=== PATIENT | male | born 1960 | race Caucasian/White ===

== ENCOUNTER 2022-03-15 13:17 | Outpatient (CLI) | payer BC ==
[2022-03-15 16:14] LABS: #Eosinphils 0.1 10x3/uL (0.0-0.5); #Monocytes 0.5 10x3/uL (0.0-1.1); #Neutrophils 6.1 10x3/uL (1.5-8.4); %Basophils 0.5 % (0.0-2.0); %Eosinophils 1.5 % (0.0-6.0); %Lymphocytes 15.1 % (18.0-47.0); %Monocytes 6.7 % (0.0-10.0); %Neutrophils 75.5 % (40.0-75.0); Hemoglobin 14.8 g/dL (13.5-17.5); Mean Corpuscular Volume 90.9 fl (81.2-95.1); Mean Platelet Volume 10.8 fl (7.4-10.4); Platelet Count 252 10x3/uL (150-450); RBC Distribution Width 13.3 % (11.5-14.5); Red Blood Cell (RBC) Count 4.93 10x6/uL (4.32-5.72); White Blood Cell (WBC) Count 8.1 10x3/uL (3.5-10.5)
== END 2022-03-15 13:18 | disposition home or self-care (01) ==
LOC: LABBT 13:17
PROVIDERS: ATTEND Orthopaedic Surgery Hand Surgery
DX: Z01.818 Encounter for other preprocedural examination (principal); M72.0 Palmar fascial fibromatosis [Dupuytren]
CPT/HCPCS: 85025; 93005; 93010

== ENCOUNTER 2022-03-19 05:38 | Day surgery (SDC) | payer BC ==
[2022-03-15 13:27] VITALS: BMI 27.3
[2022-03-19] MEDS ORDERED: Bupivacaine PF 0.5% 30 ML VIAL ONE ×2 (06:15→06:17)
[2022-03-19] MEDS ORDERED: Bacitracin Zinc Ointment 30 gm TUBE ONE (06:17)
[2022-03-19] MEDS ORDERED: Neomycin-Polymyxin 1 ML AMP ONE (06:17)
[2022-03-19] MEDS ORDERED: fentaNYL PF 100 MCG/2 ML SYRINGE ONE (07:01)
[2022-03-19] MEDS ORDERED: PROPOFOL 20 ML ONE (07:01)
[2022-03-19] MEDS ORDERED: CEFAZOLIN 2 GM VIAL ONE (07:08)
[2022-03-19] MEDS ORDERED: Sodium Chloride 0.9% 100 ML ONE (07:08)
[2022-03-19] MEDS ORDERED: Collagenase Clostridium Hist. 0.9 MG VIAL IJ SCH (07:15)
== END 2022-03-19 08:20 | disposition home or self-care (01) ==
LOC: SDC 05:38
PROVIDERS: ATTEND Orthopaedic Surgery Hand Surgery
PROC: 3E013TZ Introduction of Destructive Agent into Subcutaneous Tissue, Percutaneous Approach (ICD-10-PCS; principal; 2022-03-19)
DX: M72.0 Palmar fascial fibromatosis [Dupuytren] (principal); J44.9 Chronic obstructive pulmonary disease, unspecified; Z79.51 Long term (current) use of inhaled steroids; Z79.899 Other long term (current) drug therapy; Z91.013 Allergy to seafood; Z91.041 Radiographic dye allergy status; Z90.49 Acquired absence of other specified parts of digestive tract
CPT/HCPCS: 36416; J0775; J2704; J3490; S0020

== ENCOUNTER 2022-03-26 13:35 | Day surgery (SDC) | payer BC ==
[2022-03-25 14:28] VITALS: BMI 27.3
[2022-03-26] MEDS ORDERED: Mineral Oil Sterile 10 ML VIAL ONE (20:14)
[2022-03-26] MEDS ORDERED: Neomycin-Polymyxin 1 ML AMP ONE (20:14)
[2022-03-26] MEDS ORDERED: Thrombin 5000 UNITS/5 ML VIAL ONE (20:14)
[2022-03-26] MEDS ORDERED: Bacitracin Zinc Ointment 30 gm TUBE ONE (20:14)
[2022-03-26] MEDS ORDERED: Bupivacaine PF 0.5% 30 ML VIAL ONE (20:14)
[2022-03-26] MEDS ORDERED: CEFAZOLIN 2 GM VIAL ONE (20:21)
[2022-03-26] MEDS ORDERED: fentaNYL PF 100 MCG/2 ML SYRINGE ONE (20:21)
[2022-03-26] MEDS ORDERED: Albuterol Sulfate HFA (OR ONLY) ONE (20:28)
[2022-03-26] MEDS ORDERED: Ondansetron PF 4 MG/2 ML Vial ONE (20:31)
[2022-03-26] MEDS ORDERED: PROPOFOL 200 MG/20 ML VIAL ONE (20:31)
[2022-03-26] MEDS ORDERED: Ketorolac Tromethamine 30 MG/ML VIAL ONE (21:55)
== END 2022-03-26 22:50 | disposition home or self-care (01) ==
LOC: SDC 13:35
PROVIDERS: ATTEND Orthopaedic Surgery Hand Surgery
PROC: 0HRGX73 Replacement of Left Hand Skin with Autologous Tissue Substitute, Full Thickness, External Approach (ICD-10-PCS; principal; 2022-03-26)
DX: S61.402A Unspecified open wound of left hand, initial encounter (principal); M72.0 Palmar fascial fibromatosis [Dupuytren]; F17.290 Nicotine dependence, other tobacco product, uncomplicated; J44.9 Chronic obstructive pulmonary disease, unspecified; Z79.52 Long term (current) use of systemic steroids; Z91.013 Allergy to seafood; Z91.041 Radiographic dye allergy status; Z90.49 Acquired absence of other specified parts of digestive tract
CPT/HCPCS: J1885; J2405; J2704; S0020

== ENCOUNTER 2022-04-19 05:39 | Day surgery (SDC) | payer BC ==
[2022-04-18 13:20] VITALS: BMI 26.6
[2022-04-19] MEDS ORDERED: Bupivacaine PF 0.5% 30 ML VIAL ONE (06:25)
[2022-04-19] MEDS ORDERED: Betamet Acet/Betamet Na Ph 30 MG/5 ML VIAL ONE (06:25)
[2022-04-19] MEDS ORDERED: Bacitracin Zinc Ointment 30 gm TUBE ONE (06:26)
[2022-04-19] MEDS ORDERED: Neomycin-Polymyxin 1 ML AMP ONE (06:26)
[2022-04-19] MEDS ORDERED: fentaNYL PF 100 MCG/2 ML SYRINGE ONE (07:03)
[2022-04-19] MEDS ORDERED: Sodium Chloride 0.9% 100 ML ONE (07:08)
[2022-04-19] MEDS ORDERED: CEFAZOLIN 2 GM VIAL ONE (07:08)
[2022-04-19] MEDS ORDERED: GLYCOPYRROLATE/PF 0.2 MG/ML VIAL ONE (07:24)
[2022-04-19] MEDS ORDERED: PROPOFOL 200 MG/20 ML VIAL ONE (07:24)
[2022-04-19] MEDS ORDERED: ePHEDrine 50 MG/ML VIAL ONE (07:24)
[2022-04-19] MEDS ORDERED: Ketorolac Tromethamine 30 MG/ML VIAL ONE (10:17)
== END 2022-04-19 11:15 | disposition home or self-care (01) ==
LOC: SDC 05:39
PROVIDERS: ATTEND Orthopaedic Surgery Hand Surgery
PROC: 0JNJ0ZZ Release Right Hand Subcutaneous Tissue and Fascia, Open Approach (ICD-10-PCS; principal; 2022-04-19)
PROC: 01N50ZZ Release Median Nerve, Open Approach (ICD-10-PCS; principal; 2022-04-19)
DX: M72.0 Palmar fascial fibromatosis [Dupuytren] (principal); M12.041 Chronic postrheumatic arthropathy [Jaccoud], right hand; J44.9 Chronic obstructive pulmonary disease, unspecified; F17.290 Nicotine dependence, other tobacco product, uncomplicated; Z79.52 Long term (current) use of systemic steroids; Z91.013 Allergy to seafood; Z91.041 Radiographic dye allergy status
CPT/HCPCS: 88304; J0702; J1885; J2704; J3490; S0020